=== PATIENT | male | born 1990 | race American Indian/Alaskan Native ===

== ENCOUNTER 2019-08-17 13:42 | Emergency (ER) | payer OTHER ==
[2019-08-17] MEDS ORDERED: TETANUS,DIPH,PERTUSS(ACELL) VACCINE 0.5 ML SYRINGE IM ONE ×2 (13:47→18:12)
--- NOTE | 2019-08-17 13:47 | Event Note ---
ED Screening Note Date of service: 08/17/19 Time: 13:45 ED Screening Note: This is a 29 y.o. M. that presents to the ER with laceration to 3rd distal finger. 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 Tetanus not UTD. This initial assessment/diagnostic orders/clinical plan/treatment(s) is/are subject to change based on patients health status, clinical progression and re- assessment by fellow clinical providers in the ED. Further treatment and workup at subsequent clinical providers discretion. Patient/guardian urged not to elope from the ED as their condition may be serious if not clinically assessed and managed. Initial orders include: XR right fingers [facility]
--- NOTE | 2019-08-17 14:23 | XRay Report ---
RIGHT FINGERS, 3 VIEWS INDICATION: laceration 3rd distal,. COMPARISON: None. IMPRESSION: Soft tissue laceration is noted in the distal third digit. No radiopaque foreign body or acute osseous injury is identified. 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 No significant DJD. Signer Name: Donovan Slade Jr, MD Signed: 08/17/2019 2:18 PM Workstation Name: [id number]
[2019-08-17 14:26] VITALS: BP 140/95
[2019-08-17] MEDS ORDERED: LIDOCAINE (1%) 10 MG/1 ML VIAL 20 ML MDV INFILTRATI ONE (16:19)
--- NOTE | 2019-08-17 17:50 | Emergency Department Report ---
- General Chief Complaint: Laceration/Recheck/Suture Stated Complaint: RT FINGERS LAC/PAIN Time Seen by Provider: 08/17/19 13:44 Source: patient Mode of arrival: Ambulatory Limitations: No Limitations - History of Present Illness Initial Comments: Patient is a 29-year-old male presents emergency room with complaints of a laceration to his right middle finger that occurred just prior to arrival. 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 He denies any pain in the finger just has pain where the laceration is present. Denies any numbness or weakness. pt is unsure of his last tetanus immunization. He denies any past medical history or allergies medications. - Related Data Previous Rx's Medication Instructions Recorded Last Taken Type cephALEXin [Keflex] 500 mg PO BID 7 Days #14 cap 08/17/19 Unknown Rx Allergies Allergy/AdvReac Type Severity Reaction Status Date / Time No Known Allergies Allergy Unverified 08/17/19 13:47 ED Review of Systems ROS: Stated complaint: RT FINGERS LAC/PAIN Other details as noted in HPI Comment: All other systems reviewed and negative ED Past Medical Hx - Past Medical History Previous Medical History?: No - Surgical History Additional Surgical History: finger surgery - Social History Smoking Status: Never Smoker Substance Use Type: None - Medications Home Medications: Home Medications Medication Instructions Recorded Confirmed Last Taken Type cephALEXin [Keflex] 500 mg PO BID 7 Days #14 cap 08/17/19 Unknown Rx ED Physical Exam - General Limitations: No Limitations General appearance: alert, in no apparent distress - Head Head exam: Present: atraumatic, normocephalic - Eye Eye exam: Present: normal appearance - ENT ENT exam: Present: mucous membranes moist - Extremities Exam Extremities exam: Present: other (3 cm U shaped laceration present to the palmar surface of the right middle finger, flap is present, no active bleeding, no foreign body present, no tendon/muscle involement, FROM of the right fingers and hand, neurovascularly intact) - Neurological Exam Neurological exam: Present: alert, oriented X3 - Psychiatric Psychiatric exam: Present: normal affect, normal mood - Skin Skin exam: Present: warm, dry ED Course Vital Signs 08/17/19 14:24 Temperature 97.4 F L Pulse Rate 84 Respiratory 20 Rate Blood Pressure 140/95 O2 Sat by Pulse 96 Oximetry - Laceration /Wound Repair Right Palm Finger Wound Location: upper extremity (palmar surface of the right middle finger) Wound Length (cm): 3 Wound's Depth, Shape: superficial, flap Wound Explored: clean Irrigated w/ Saline (ccs): 100 Betadine Prep?: Yes Anesthesia: 1% Lidocaine Volume Anesthetic (ccs): 6 Wound Debrided: minimal Wound Repaired With: sutures Suture Size/Type: 4:0, proline Number of Sutures: 8 Layer Closure?: No Sterile Dressing Applied?: Yes Progress: Wound irrigated with saline and thoroughly scrubbed with Betadine, no foreign body, no muscle or tendon involvement, 6 mL of 1% lidocaine without epinephrine used for digital block, betadine prep, sterile gloves worn, sterile drapes applied, 4-0 Prolene used for skin repair, 8 sutures placed, patient tolerated well, bleeding controlled, no complications, sterile dressing applied ED Medical Decision Making - Radiology Data Radiology results: report reviewed RIGHT FINGERS, 3 VIEWS INDICATION: laceration 3rd distal,. COMPARISON: None. IMPRESSION: Soft tissue laceration is noted in the distal third digit. No radiopaque foreign body or acute osseous injury is identified. 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 No significant DJD. Signer Name: Donovan Spaulding Jr, MD Signed: 08/17/2019 2:18 PM Workstation Name: [id number] Transcribed By: TTR Dictated By: DONOVAN SPAULDING JR, MD Electronically Authenticated By: DONOVAN SPAULDING JR, MD Signed Date/Time: 08/17/191417 DD/ 17 TD/TT: - Medical Decision Making Patient is a 29-year-old male presents emergency room with complaints of a laceration to his right middle finger that occurred just prior to arrival. 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 He denies any pain in the finger just has pain where the laceration is present. Denies any numbness or weakness. pt is unsure of his last tetanus immunization. He denies any past medical history or allergies medications. VSS. on exam: 3 cm U shaped laceration present to the palmar surface of the right middle finger, flap is present, no active bleeding, no foreign body present, no tendon/muscle involement, FROM of the right fingers and hand, neurovascularly intact. XR right fingers: Soft tissue laceration is noted in the distal third digit. No radiopaque foreign body or acute osseous injury is identified. 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 No significant DJD. laceration repaired per procedure note. advised pt to please keep area clean, dry, covered. Sutures will need to be removed in 7-10 days. May wash with soap and water and immediately dry. No hot tub, pool, soaking in water. Please take medication as prescribed to completion. Follow-up with a primary care doctor in the next 3-5 days for reexamination. Return to the emergency room for any new or worsening symptoms or any worsening signs of infection despite antibiotic therapy. Critical care attestation.: If time is entered above; I have spent that time in minutes in the direct care of this critically ill patient, excluding procedure time. ED Disposition Clinical Impression: Laceration of right middle finger Qualifiers: Encounter type: initial encounter Damage to nail status: without damage Foreign body presence: without foreign body Qualified Code(s): S61.212A - Laceration without foreign body of right middle finger without damage to nail, initial encounter Disposition: DC-01 TO HOME OR SELFCARE Is pt being admited?: No Does the pt Need Aspirin: No Condition: Stable Instructions: Suture Care (ED), Laceration (ED) Additional Instructions: Please keep area clean, dry, covered. Sutures will need to be removed in 7-10 days. May wash with soap and water and immediately dry. No hot tub, pool, soaking in water. Please take medication as prescribed to completion. Follow- up with a primary care doctor in the next 3-5 days for reexamination. Return to the emergency room for any new or worsening symptoms or any worsening signs of infection despite antibiotic therapy. Prescriptions: cephALEXin [Keflex] 500 mg PO BID 7 Days #14 cap Referrals: [facility] [Provider Group] - 3-5 Days Time of Disposition: 17:55 Print Language: SAO TOMEAN
== END 2019-08-17 18:15 | disposition home or self-care (01) ==
LOC: ED 13:42
DX: S61.212A Laceration without foreign body of right middle finger without damage to nail, initial encounter (principal); Z98.890 Other specified postprocedural states; Z79.899 Other long term (current) drug therapy; W27.0XXA Contact with workbench tool, initial encounter; Y93.89 Activity, other specified; Y92.89 Other specified places as the place of occurrence of the external cause; Y99.0 Civilian activity done for income or pay
CPT/HCPCS: 90471; 90715